=== PATIENT | female | born 1970 | race African-American/Black ===

== ENCOUNTER 2016-11-07 12:38 | Emergency (ER) | payer OTHER ==
[~2016-11-07 12:38] MED LIST: ABILIFY5 MG PO; ACETAMINOPHEN PO; ACYCLOVIR400 MG PO; ALPRAZOLAM PO; AMITRIPTYLINE H50 MG PO; AMITRYPTYLINE PO; ATARAX PO; BENADRYL PO; BUPROPION HCL150 M1 PO; BUPROPION XL300 M1 PO; CELEXA PO; CELEXA20 MG PO; CITALOPRAM HBR40 MG PO; DARVOCET-N 1001 TAB PO; ENDOCET 7.5-3251 TAB PO; EXCEDRIN GELTAB1 TA1 PO; FLAGYL PO; FLEXERIL PO; FLEXERIL10 MG PO; GABAPENTIN400 M2 PO; IBUPROFEN PO; IBUPROFEN800 MG PO; KETOPROFEN PO; LEVAQUIN PO; LOTENSIN20 MG PO; LOTRISONE CREAM45 GM TOP; MACROBID100 MG PO; MAXALT MLT10 MG/TAB PO; MEDROL PO; MEDROL4 MG/DOSE- PO; MELOXICAM15 MG PO; NEURONTIN PO; NEURONTIN600 MG PO; ORUDIS75 M1 PO; PAXIL PO; PERCOCET 7.5-31 EACH PO; PERCOCET5/325 PO; PHENERGAN PO; PRILOSEC PO; RELAFEN PO; SEROQUEL PO; SUMATRIPTAN SU100 MG PO; TALWIN NX TABLE1 TAB PO; TAMIFLU75 M1 PO; TIZANIDINE HCL4 M1 PO; TOPIRAMATE100 MG PO; TRAMADOL HCL50 M1 PO; TYLOX 5/500 CAP1 CAP PO; ULTRAM PO; VICODIN 5/1 TAB 5/50 PO; VICODIN 5/500 T1 TAB PO; VITAMIN D50000 UNIT PO; VOLTAREN75 MG PO; WELLBUTRIN PO; WELLBUTRIN SR PO; WELLBUTRIN SR150 MG PO; ZANAFLEX4 M1 PO; metronidazole 500 mg PO
== END 2016-11-07 14:25 | disposition home or self-care (01) ==
LOC: CFTX 12:38
DX: M54.5 Low back pain (principal); G89.29 Other chronic pain; Z98.51 Tubal ligation status
CPT/HCPCS: 84703; 96372; 99283; J2270

== ENCOUNTER 2017-03-06 09:20 | Emergency (ER) | payer OTHER ==
[~2017-03-06] VITALS: Ht 157.5 cm; Wt 95.2 kg
--- NOTE | ~2017-03-06 | CR72 ---
[facility] A Service of [facility] & [facility] RADIOLOGY TEXT RESULTS PATIENT: JAN GREER LOCATION: [facility] : 70 UNIT #: [id number] AGE: [address]: Anshul Lopez MD SEX: F ORDER DR: [id number] [facility] [address] [place], [place] [address] [id number] MR#: [id number] Acc #: [id number] NAME: JAN GREER : 1970 SEX: F STUDY DATE/TIME: 03/06/2017 10:13 UNIT: [facility] ROOM: STUDY DESCRIPTION: CR Chest Single View Portable Attending Physician: Anshul Lopez M.D. Ordering Physician: Anshul Lopez M.D. Primary Care Physician: [facility] MEDICAL IMAGING REPORT This report is preliminary unless electronic signature is present EXAM Portable chest. INDICATIONS Chest pain for 3 days. COMPARISON 05/18/2016. FINDINGS Mild elevation of the right hemidiaphragm, stable. No airspace consolidation. Heart size normal. IMPRESSION No active disease. Dictated by... Sylvester Dennis M.D. THIS IS AN ELECTRONICALLY VERIFIED REPORT Sylvester Dennis M.D. at 03/07/2017 6:59 AM ARS/gz TD: 03/06/2017 14:23 JOB #: [id number] MEDICAL IMAGING REPORT Page 1 of 1 COPY
--- NOTE | ~2017-03-06 | EKG ---
PATIENT: JAN GREER UNIT #: [id number] Ventricular Rate: 82 BPM Atrial Rate: 82 BPM P-R Interval: 224 ms QRS Duration: 80 ms Q-T Interval: 388 ms QTC Calculation(Bezet): 453 ms P Newhall: 33 degrees Calculated R [place]hall: -3 degrees Calculated T [place]hall: 35 degrees Diagnosis Line: Sinus rhythm with 1st degree A-V block Diagnosis Line: Nonspecific T wave abnormality Diagnosis Line: Abnormal ECG Diagnosis Line: When compared with ECG of 19-MAY-2016 05:32, Diagnosis Line: No significant change was found Diagnosis Line: Confirmed by GONZALEZ CORONA MD ([id number]) on 03/06/2017 Diagnosis Line: 7:57:54 PM INTERPRETING MD: CJ CAPELLAN
[2017-03-06 10:58] LABS: POC - CKMB <1.0 ng/mL (0.0-7.9); POC - TROPONIN <0.05 ng/mL (<=0.05)
[2017-03-06 11:02] LABS: BASOPHIL# 0.1 X10e3 (0-0.3); BASOPHIL% 1.1 % (0-2.5); EOSINOPHIL# 0.1 X10e3 (0-0.7); EOSINOPHIL% 1.8 % (0.0-7.0); HEMATOCRIT 39.6 % (35.0-45.0); LYMPHOCYTE# 1.8 X10e3 (1.0-3.5); MEAN CELL VOLUME 87.2 FL (83-96); MEAN CORPUSCULAR HEMOGLOBIN 28.5 PG (28-34); MEAN CORPUSCULAR HGB CONC 32.7 g/dL (30-36); MONOCYTE# 0.7 X10e3 (0-1.0); MONOCYTE% 11.5 % (3.0-12.0); NEUTROPHIL# 3.1 X10e3 (1.5-7.1); NEUTROPHIL% 54.6 % (40-75); PLATELET COUNT 325 X10e3 (140-420); RED BLOOD COUNT 4.54 X10e (3.90-5.30); RED CELL DISTRIBUTION WIDTH 14.6 % (11.0-15.5); WHITE BLOOD COUNT 5.7 X10e3 (4.0-10.5)
[2017-03-06 11:05] LABS: DIFF IND NO
[2017-03-06 11:18] LABS: PARTIAL THROMBOPLASTIN TIME 28.5 SECONDS (23.5-31.3); PROTHROMBIN TIME (PATIENT) 10.7 SECONDS (10.0-11.7)
[2017-03-06 11:33] LABS: ALBUMIN SERUM 4.4 g/dL (3.5-5.0); ALKALINE PHOSPHATASE 75 U/L (32-92); ALT (SGPT) 33 U/L (10-40); AST (SGOT) 23 U/L (10-42); BILIRUBIN,TOTAL 0.4 mg/dL (0.2-2.0); BLOOD UREA NITROGEN 11 mg/dL (9-23); BUN/CREATININE RATIO 13.75; CALCIUM SERUM 9.4 mg/dL (8.4-10.2); CARBON DIOXIDE 25 mmol/L (22-31); CHLORIDE 106 mmol/L (100-111); CREATININE SERUM 0.8 mg/dL (0.6-1.4); GLOM FILT RATE Estimated 102.6 mL/min (>60); GLUCOSE FASTING 89 mg/dL (70-110); POTASSIUM 3.5 mmol/L (3.5-5.1); PROTEIN TOTAL SERUM 7.7 g/dL (6.0-8.3); SODIUM 139 mmol/L (135-145)
[2017-03-06 11:34] LABS: BILIRUBIN, DIRECT <0.1 mg/dL (0.0-0.2); BILIRUBIN,INDIRECT 0.3 mg/dL (0.0-0.9)
[2017-03-06 12:35] LABS: POC - CKMB <1.0 ng/mL (0.0-7.9); POC - TROPONIN <0.05 ng/mL (<=0.05)
== END 2017-03-06 13:32 | disposition home or self-care (01) ==
LOC: CED 09:20
PROVIDERS: Emergency Medicine
DX: R07.89 Other chest pain (principal); R53.1 Weakness; I10 Essential (primary) hypertension; Z98.51 Tubal ligation status; Z90.89 Acquired absence of other organs
CPT/HCPCS: 36415; 71010; 80048; 80076; 82553; 84484; 85025; 85379; 85610; 85730; 93005; 96374; 99285; J1885